=== PATIENT | male | born 1990 | race Hispanic/Latino ===

== ENCOUNTER 2017-01-06 12:53 | Emergency (ER) | payer BC, OTHER ==
[2017-01-06 13:39] VITALS: BP 121/80
[2017-01-06] MEDS ORDERED: Proparacaine 0.5% Ophth Soln 15 ML Bottle ONE (13:45)
[2017-01-06] MEDS ORDERED: Proparacaine 0.5% Ophth Soln 15 ML Bottle EYERT ONE (13:47)
--- NOTE | 2017-01-06 13:51 | EDM.PDOC ---
ED HPI EYE COMPLAINT - General Chief Complaint: Eye Problems Stated Complaint: PT GOT SOMETHING IN HIS RT EYE Time Seen by Provider: 01/06/17 13:41 - History of Present Illness INITIAL COMMENTS - FREE TEXT/NARRATIVE: HISTORY AND PHYSICAL: History of present illness: Patient's 26-year-old white male presents with redness and irritation of his right eye he does not recall any foreign body or trauma he does have a concern this is been times today. He had no fever chills nausea vomiting no visual disturbance Review of systems: As per history of present illness and below otherwise all systems reviewed and negative. Past medical history: As per history of present illness and as reviewed below otherwise noncontributory. Surgical history: As per history of present illness and as reviewed below otherwise noncontributory. Social history: No reported history of drug or alcohol abuse. Family history: As per history of present illness and as reviewed below otherwise noncontributory. Physical exam: HEENT: Atraumatic, normocephalic, pupils reactive, negative for conjunctival pallor or scleral icterus, mucous membranes moist, throat clear, neck supple, nontender, trachea midline. Conjunctival injection noted more medially with associated episcleritis anterior chamber clear fluorescein negative funduscopic exam on Lungs: Clear to auscultation, breath sounds equal bilaterally, chest nontender. Heart: S1S2, regular, negative for clicks, rubs, or JVD. Abdomen: Soft, nondistended, nontender. Negative for masses or hepatosplenomegaly. Negative for costovertebral tenderness. Pelvis: Stable nontender. Genitourinary: Deferred. Rectal: Deferred. Extremities: Atraumatic, negative for cords or calf pain. Neurovascular unremarkable. Neuro: Awake, alert, oriented. Cranial nerves II through XII unremarkable. Cerebellum unremarkable. Motor and sensory unremarkable throughout. Exam nonfocal. Diagnostics: Negative for corneal abrasion per fluoro stain Therapeutics: Proparacaine drops Impression: #1 right conjunctivitis/episcleritis Definitive disposition and diagnosis as appropriate pending reevaluation and review of above. - Related Data Allergies/ADRs: Allergies No Known Allergies Allergy (Verified 03/11/15 10:09) Home Meds: Ambulatory Orders Medication Instructions Recorded Confirmed . [No Known Home Meds] 03/11/15 07/20/16 Past Medical History - Past Health History Medical/Surgical History: Denies Medical/Surgical History Other Dermatologic History: laceration RLE Social & Family History - Family History Family Medical History: Noncontributory - Tobacco Use Smoking Status *Q: Light Tobacco Smoker Years of Tobacco use: 2 Packs/Tins Daily: 0.5 - Alcohol Use Days Per Week of Alcohol Use: 0 - Recreational Drug Use Recreational Drug Use: No Drug Use in Last 12 Months: No ED ROS GENERAL - Review of Systems Review Of Systems: ROS reveals no pertinent complaints other than HPI. ED EXAM GENERAL W FULL EYE - Physical Exam Exam: See Below (See dictation) Course - Vital Signs Last Recorded V/S: Last Vital Signs Temp 36.9 C 01/06/17 13:34 Pulse 95 01/06/17 13:34 Resp 16 01/06/17 13:34 BP 121/80 01/06/17 13:34 Pulse Ox 97 01/06/17 13:34 - Orders/Labs/Meds Meds: Medications Discontinued Medications Generic Name Dose Route Start Last Admin Trade Name Freq PRN Reason Stop Dose Admin Proparacaine HCl Confirm 01/06/17 13:45 Proparacaine 0.5% Ophth Soln Administered 01/06/17 13:46 Dose 15 ml .ROUTE .STK-MED ONE Proparacaine HCl 1 ml 01/06/17 13:47 Proparacaine 0.5% Ophth Soln EYERT 01/06/17 13:48 ONETIME ONE Departure - Departure Time of Disposition: 13:50 Disposition: Home, Self-Care 01 Condition: good Clinical Impression: Conjunctivitis Forms: ED Department Discharge Additional Instructions: The following information is given to patients seen in the emergency department who are being discharged to home. This information is to outline your options for follow-up care. We provide all patients seen in our emergency department with a follow-up referral. The need for follow-up, as well as the timing and circumstances, are variable depending upon the specifics of your emergency department visit. If you don't have a primary care physician on staff, we will provide you with a referral. We always advise you to contact your personal physician following an emergency department visit to inform them of the circumstance of the visit and for follow-up with them and/or the need for any referrals to a consulting specialist. The emergency department will also refer you to a specialist when appropriate. This referral assures that you have the opportunity for followup care with a specialist. All of these measure are taken in an effort to provide you with optimal care, which includes your followup. Under all circumstances we always encourage you to contact your private physician who remains a resource for coordinating your care. When calling for followup care, please make the office aware that this follow-up is from your recent emergency room visit. If for any reason you are refused follow-up, please contact the [facility] emergency department at and asked to speak to the emergency department charge nurse. Tobrex ophthalmic drops as prescribed follow up primary medical doctor one to 2 days return as needed as discussed
== END 2017-01-06 14:08 | disposition home or self-care (01) ==
LOC: MW.ED 12:53
DX: H10.9 Unspecified conjunctivitis (principal); F17.210 Nicotine dependence, cigarettes, uncomplicated
CPT/HCPCS: 99282; 99283